=== PATIENT | female | born 1980 | race American Indian/Alaskan Native ===

== ENCOUNTER 2018-08-27 18:18 | Emergency (ER) | payer BC ==
[2018-08-27] MEDS ORDERED: NACL 0.9% 1000 ML 1,000 ML IV ONE (18:44)
[2018-08-27 19:22] LABS: Hemoglobin 7.3 gm/dl (10.1-14.3); Mean Corpuscular HGB Conc 32 % (30-34); Mean Corpuscular Volume 75 fl (79-97); Platelet Count 733 K/mm3 (140-440); Red Blood Count 3.06 M/mm3 (3.65-5.03); Red Cell Distribution Width 17.9 % (13.2-15.2)
[2018-08-27 19:34] LABS: Alanine Aminotransferase 27 units/L (7-56); BUN/Creatinine Ratio 7; Blood Urea Nitrogen 5 mg/dL (7-17); Calcium 8.6 mg/dL (8.4-10.2); Hemolysis Index 0
[2018-08-27 20:23] LABS: Basophils % (Manual) 0 % (0.0-1.8); Eosinophils % (Manual) 0 % (0.0-4.3); Total Cells Counted 100
[2018-08-27 20:25] LABS: Anisocytosis 1+; Hypochromasia 1+; Platelet Estimate Consistent w Auto; Target Cells Few
[2018-08-27 22:04] LABS: HCG Qualitative,Urine Negative (Negative)
[2018-08-27 22:08] LABS: Bacteria,Urine 1+ /HPF (Negative); Bilirubin,Urine NEG (Negative); Blood,Urine MOD (Negative); Color,Urine Yellow (Yellow); Protein,Urine <15 mg/dL mg/dL (Negative)
--- NOTE | 2018-08-28 02:05 | Emergency Department Report ---
ED Abdominal Pain HPI - General Chief Complaint: Abdominal Pain Stated Complaint: ABD PAIN,ANAL PAIN Time Seen by Provider: 08/28/18 02:05 Source: patient Mode of arrival: Ambulatory Limitations: No Limitations - History of Present Illness MD Complaint: abdominal pain -: Gradual Location: LLQ, RLQ, suprapubic Radiation: none Migration to: no migration Severity: moderate Severity scale (0 -10): 6 Quality: cramping, sharp Consistency: constant Improves With: nothing Worsens With: nothing Associated Symptoms: denies other symptoms - Related Data Allergies Allergy/AdvReac Type Severity Reaction Status Date / Time No Known Allergies Allergy Unverified 08/27/18 18:44 ED Review of Systems ROS: Stated complaint: ABD PAIN,ANAL PAIN Other details as noted in HPI Comment: All other systems reviewed and negative Constitutional: denies: chills, fever Eyes: denies: eye pain, eye discharge, vision change ENT: denies: ear pain, throat pain Respiratory: denies: cough, shortness of breath, wheezing Cardiovascular: denies: chest pain, palpitations Endocrine: no symptoms reported Gastrointestinal: abdominal pain. denies: nausea, diarrhea Genitourinary: denies: urgency, dysuria, discharge Musculoskeletal: denies: back pain, joint swelling, arthralgia Skin: denies: rash, lesions Neurological: weakness (generalized weakness and fatigue.). denies: headache, paresthesias Psychiatric: denies: anxiety, depression Hematological/Lymphatic: denies: easy bleeding, easy bruising ED Past Medical Hx - Past Medical History Additional medical history: hemorrhoids - Social History Smoking Status: Never Smoker Substance Use Type: Alcohol ED Physical Exam - General Limitations: No Limitations General appearance: alert, in no apparent distress, obese - Head Head exam: Present: atraumatic, normocephalic - Eye Eye exam: Present: normal appearance, PERRL, EOMI Pupils: Present: normal accommodation - ENT ENT exam: Present: normal exam, normal orophraynx, mucous membranes moist - Neck Neck exam: Present: normal inspection, full ROM - Respiratory Respiratory exam: Present: normal lung sounds bilaterally. Absent: respiratory distress - Cardiovascular Cardiovascular Exam: Present: regular rate, normal rhythm. Absent: systolic murmur, diastolic murmur, rubs, gallop - GI/Abdominal GI/Abdominal exam: Present: soft, normal bowel sounds - Rectal Rectal exam: Present: deferred - External exam: Present: normal external exam. Absent: lacerations, bleeding Speculum exam: Present: vaginal discharge. Absent: vaginal bleeding, foreign body, laceration Bi-manual exam: Present: cervical motion tendernes, adnexal tenderness, uterine tenderness, other (Police Commanding Officer was Ms. Leggett RN.). Absent: adnexal mass, uterine enlargement - Extremities Exam Extremities exam: Present: normal inspection, full ROM, normal capillary refill. Absent: tenderness - Back Exam Back exam: Present: normal inspection, full ROM - Neurological Exam Neurological exam: Present: alert, oriented X3, CN II-XII intact - Psychiatric Psychiatric exam: Present: normal affect, normal mood - Skin Skin exam: Present: warm, dry, intact, normal color. Absent: rash ED Course Vital Signs 08/27/18 08/27/18 08/27/18 18:40 22:44 23:26 Temperature 98 F 99.1 F 98.5 F Pulse Rate 111 H 102 H 98 H Respiratory 18 18 18 Rate Blood Pressure 149/62 150/81 Blood Pressure 144/76 [Right] O2 Sat by Pulse 100 99 98 Oximetry 08/28/18 03:21 Temperature Pulse Rate 94 H Respiratory 19 Rate Blood Pressure Blood Pressure 104/67 [Right] O2 Sat by Pulse 100 Oximetry - Reevaluation(s) Reevaluation #1: 08/28/18 06:00 Patient refused blood transfusion and admission to the hospital. - Consultations Consultation #1: 08/28/18 05:38 I consulted the OBGYN doctor instructional support technician Dr Vinson and she agreed with admitting patient to mother/baby unit for further evaluation and management. She also recommend transfusing patient with PRBC's. ED Medical Decision Making - Lab Data Result diagrams: 08/27/18 18:46 08/27/18 18:46 Lab Results 08/27/18 08/27/18 08/27/18 Range/Units 18:46 18:46 21:53 WBC 18.5 H (4.5-11.0) K/mm3 RBC 3.06 L (3.65-5.03) M/mm3 Hgb 7.3 L (10.1-14.3) gm/dl Hct 23.0 L (30.3-42.9) % MCV 75 L (79-97) fl MCH 24 L (28-32) pg MCHC 32 (30-34) % RDW 17.9 H (13.2-15.2) % Plt Count 733 H (140-440) K/mm3 Add Manual Diff Complete Total Counted 100 Seg Neuts % (Manual) 74.0 H (40.0-70.0) % Band Neutrophils % 0 % Lymphocytes % (Manual) 22.0 (13.4-35.0) % Reactive Lymphs % (Man) 0 % Monocytes % (Manual) 4.0 (0.0-7.3) % Eosinophils % (Manual) 0 (0.0-4.3) % Basophils % (Manual) 0 (0.0-1.8) % Metamyelocytes % 0 % Myelocytes % 0 % Promyelocytes % 0 % Blast Cells % 0 % Nucleated RBC % Not Reportable Seg Neutrophils # Man 13.7 H (1.8-7.7) K/mm3 Band Neutrophils # 0.0 K/mm3 Lymphocytes # (Manual) 4.1 (1.2-5.4) K/mm3 Abs React Lymphs (Man) 0.0 K/mm3 Monocytes # (Manual) 0.7 (0.0-0.8) K/mm3 Eosinophils # (Manual) 0.0 (0.0-0.4) K/mm3 Basophils # (Manual) 0.0 (0.0-0.1) K/mm3 Metamyelocytes # 0.0 K/mm3 Myelocytes # 0.0 K/mm3 Promyelocytes # 0.0 K/mm3 Blast Cells # 0.0 K/mm3 WBC Morphology Not Reportable Hypersegmented Neuts Not Reportable Hyposegmented Neuts Not Reportable Hypogranular Neuts Not Reportable Smudge Cells Not Reportable Toxic Granulation Not Reportable Toxic Vacuolation Not Reportable Dohle Bodies Not Reportable Pelger-Huet Anomaly Not Reportable Tala Rods Not Reportable Platelet Estimate Consistent w auto Clumped Platelets Not Reportable Plt Clumps, EDTA Not Reportable Large Platelets Not Reportable Giant Platelets Not Reportable Platelet Satelliting Not Reportable Plt Morphology Comment Not Reportable RBC Morphology Not Reportable Dimorphic RBCs Not Reportable Polychromasia Few Hypochromasia 1+ Poikilocytosis Not Reportable Anisocytosis 1+ Microcytosis Few Macrocytosis Not Reportable Spherocytes Not Reportable Pappenheimer Bodies Not Reportable Sickle Cells Not Reportable Target Cells Few Tear Drop Cells Not Reportable Ovalocytes Not Reportable Helmet Cells Not Reportable [place] Bodies Not Reportable [place] Rings Not Reportable [place] Cells Not Reportable Bite Cells Not Reportable Crenated Cell Not Reportable Elliptocytes Not Reportable Acanthocytes (Spur) Not Reportable Rouleaux Not Reportable Hemoglobin C Crystals Not Reportable Schistocytes Not Reportable Malaria parasites Not Reportable [place] Bodies Not Reportable Hem Pathologist Commnt No Sodium 137 (137-145) mmol/L Potassium 3.5 L (3.6-5.0) mmol/L Chloride 98.6 (98-107) mmol/L Carbon Dioxide 24 (22-30) mmol/L Anion Gap 18 mmol/L BUN 5 L (7-17) mg/dL Creatinine 0.7 (0.7-1.2) mg/dL Estimated GFR > 60 ml/min BUN/Creatinine Ratio 7 % Glucose 102 H (65-100) mg/dL Calcium 8.6 (8.4-10.2) mg/dL Total Bilirubin 0.20 (0.1-1.2) mg/dL AST 17 (5-40) units/L ALT 27 (7-56) units/L Alkaline Phosphatase 76 (35-129) units/L Total Protein 7.9 (6.3-8.2) g/dL Albumin 3.0 L (3.9-5) g/dL Albumin/Globulin Ratio 0.6 % Lipase 26 (13-60) units/L Urine Color Yellow (Yellow) Urine Turbidity Slightly-cloudy (Clear) Urine pH 6.0 (5.0-7.0) Ur Specific Maxwell 1.008 (1.003-1.030) Urine Protein <15 mg/dl (Negative) mg/dL Urine Glucose (UA) Neg (Negative) mg/dL Urine Ketones Neg (Negative) mg/dL Urine Blood Mod (Negative) Urine Nitrite Neg (Negative) Urine Bilirubin Neg (Negative) Urine Urobilinogen 2.0 (<2.0) mg/dL Ur Leukocyte Esterase Mod (Negative) Urine WBC (Auto) 24.0 H (0.0-6.0) /HPF Urine RBC (Auto) 2.0 (0.0-6.0) /HPF U Epithel Cells (Auto) 3.0 (0-13.0) /HPF Urine Bacteria (Auto) 1+ (Negative) /HPF Urine HCG, Qual (Negative) 08/27/18 Range/Units 21:53 WBC (4.5-11.0) K/mm3 RBC (3.65-5.03) M/mm3 Hgb (10.1-14.3) gm/dl Hct (30.3-42.9) % MCV (79-97) fl MCH (28-32) pg MCHC (30-34) % RDW (13.2-15.2) % Plt Count (140-440) K/mm3 Add Manual Diff Total Counted Seg Neuts % (Manual) (40.0-70.0) % Band Neutrophils % % Lymphocytes % (Manual) (13.4-35.0) % Reactive Lymphs % (Man) % Monocytes % (Manual) (0.0-7.3) % Eosinophils % (Manual) (0.0-4.3) % Basophils % (Manual) (0.0-1.8) % Metamyelocytes % % Myelocytes % % Promyelocytes % % Blast Cells % % Nucleated RBC % Seg Neutrophils # Man (1.8-7.7) K/mm3 Band Neutrophils # K/mm3 Lymphocytes # (Manual) (1.2-5.4) K/mm3 Abs React Lymphs (Man) K/mm3 Monocytes # (Manual) (0.0-0.8) K/mm3 Eosinophils # (Manual) (0.0-0.4) K/mm3 Basophils # (Manual) (0.0-0.1) K/mm3 Metamyelocytes # K/mm3 Myelocytes # K/mm3 Promyelocytes # K/mm3 Blast Cells # K/mm3 WBC Morphology Hypersegmented Neuts Hyposegmented Neuts Hypogranular Neuts Smudge Cells Toxic Granulation Toxic Vacuolation Dohle Bodies Pelger-Huet Anomaly Tala Rods Platelet Estimate Clumped Platelets Plt Clumps, EDTA Large Platelets Giant Platelets Platelet Satelliting Plt Morphology Comment RBC Morphology Dimorphic RBCs Polychromasia Hypochromasia Poikilocytosis Anisocytosis Microcytosis Macrocytosis Spherocytes Pappenheimer Bodies Sickle Cells Target Cells Tear Drop Cells Ovalocytes Helmet Cells [place] Bodies [place] Rings [place] Cells Bite Cells Crenated Cell Elliptocytes Acanthocytes (Spur) Rouleaux Hemoglobin C Crystals Schistocytes Malaria parasites [place] Bodies Hem Pathologist Commnt Sodium (137-145) mmol/L Potassium (3.6-5.0) mmol/L Chloride (98-107) mmol/L Carbon Dioxide (22-30) mmol/L Anion Gap mmol/L BUN (7-17) mg/dL Creatinine (0.7-1.2) mg/dL Estimated GFR ml/min BUN/Creatinine Ratio % Glucose (65-100) mg/dL Calcium (8.4-10.2) mg/dL Total Bilirubin (0.1-1.2) mg/dL AST (5-40) units/L ALT (7-56) units/L Alkaline Phosphatase (35-129) units/L Total Protein (6.3-8.2) g/dL Albumin (3.9-5) g/dL Albumin/Globulin Ratio % Lipase (13-60) units/L Urine Color (Yellow) Urine Turbidity (Clear) Urine pH (5.0-7.0) Ur Specific Maxwell (1.003-1.030) Urine Protein (Negative) mg/dL Urine Glucose (UA) (Negative) mg/dL Urine Ketones (Negative) mg/dL Urine Blood (Negative) Urine Nitrite (Negative) Urine Bilirubin (Negative) Urine Urobilinogen (<2.0) mg/dL Ur Leukocyte Esterase (Negative) Urine WBC (Auto) (0.0-6.0) /HPF Urine RBC (Auto) (0.0-6.0) /HPF U Epithel Cells (Auto) (0-13.0) /HPF Urine Bacteria (Auto) (Negative) /HPF Urine HCG, Qual Negative (Negative) - Radiology Data Radiology results: report reviewed, image reviewed Pelvic ultrasound showed a large complex mass left ovary measuring 6.9 cm, large uterine fibroid measuring 6 cm and a large cyst on the right ovary measuring 4.2 cm. - Medical Decision Making Symptomatic iron deficiency anemia. Ovarian Cyst. Uterine Fibroid. Abdominal pain. Critical Care Time: Yes Critical care time in (mins) excluding proc time.: 45 Critical care attestation.: If time is entered above; I have spent that time in minutes in the direct care of this critically ill patient, excluding procedure time. ED Disposition Clinical Impression: Bacterial vaginosis, Symptomatic anemia, Severe anemia UTI (urinary tract infection) Qualifiers: Urinary tract infection type: acute cystitis Hematuria presence: without hematuria Qualified Code(s): N30.00 - Acute cystitis without hematuria Abdominal pain Qualifiers: Abdominal location: lower abdomen, unspecified Qualified Code(s): R10.30 - Lower abdominal pain, unspecified Uterine fibroid Qualifiers: Uterine leiomyoma location: unspecified location Qualified Code(s): D25.9 - Leiomyoma of uterus, unspecified Ovarian cyst Qualifiers: Laterality: bilateral Qualified Code(s): N83.201 - Unspecified ovarian cyst, right side Iron deficiency anemia Qualifiers: Iron deficiency anemia type: chronic blood loss Qualified Code(s): D50.0 - Iron deficiency anemia secondary to blood loss (chronic) Disposition: OP ADMIT IP TO THIS HOSP Is pt being admited?: Yes Does the pt Need Aspirin: No Condition: Stable Instructions: Bacterial Vaginosis (ED), Abdominal Pain (ED) Referrals: PRIMARY CARE, [Primary Care Provider] - 3-5 Days Forms: AMA Form, STI Treatment and Prevention, Work/School Release Form(ED) Time of Disposition: 05:45
[2018-08-28] MEDS ORDERED: LEVAQUIN 750MG/150ML 750 MG/150 ML BAG IV ONE (03:03)
[2018-08-28] MEDS ORDERED: NACL 0.9% 1000 ML 1,000 ML IV ONE (03:03)
[2018-08-28 03:22] VITALS: BP 104/67
--- NOTE | 2018-08-28 03:40 | XRay Report ---
FINAL REPORT PROCEDURE: XR CHEST 1V AP TECHNIQUE: Chest radiograph anteroposterior view. CPT 72891 HISTORY: cough COMPARISON: No prior studies are available for comparison. FINDINGS: Heart: Normal. Mediastinum/Vessels: Normal. Lungs/Pleural space: Normal. Bony thorax: No acute osseous abnormality. Life support devices: None. IMPRESSION: No acute cardiopulmonary abnormality.
[2018-08-28] MEDS ORDERED: FLAGYL 500 MG/100 ML 500 MG/100 ML BAG IV ONE (03:55)
[2018-08-28] MEDS ORDERED: XYLOCAINE 1% MPF 5 mL INFILTRATI ONE (03:56)
[2018-08-28] MEDS ORDERED: ROCEPHIN IM ONE (03:56)
[2018-08-28] MEDS ORDERED: ZITHROMAX PO ONE (03:57)
[2018-08-28] MEDS ORDERED: ZOFRAN IV ONE (03:57)
--- NOTE | 2018-08-28 04:54 | Ultrasound Report ---
FINAL REPORT PROCEDURE: US PELVIC COMPLETE TECHNIQUE: Real-time transabdominal sonography in multiple planes of the pelvis was performed. The p elvic structures, especially the ovaries were not optimally visualized. Transvaginal sonography was t hen performed to better evaluate the structures and/or abnormalities described below with image docum entation. CPT 99048 and 45477 HISTORY: Pelvic pain COMPARISON: No prior studies are available for comparison. FINDINGS: UTERUS Size: 12.9 x 5.7 x 7.1 cm. Endometrial thickness: 8 mm. Orientation: anteverted. Cervix: Normal. Fibroids/masses: Large solid tumor in the fundus of the uterus measures 4.4 x 4.7 x 6 centimeters. A large fibroid is suspected.. RIGHT Ovary: 4.8 x 3.3 x 3.2 cm. Appearance: Cystic on the right ovary measures 4.2 centimeters. LEFT Ovary: 6.9 x 6.7 x 7.1 cm. Appearance: Complex cystic region left ovary measures 6.9 centimeters. Pelvic fluid: None. Other: None. IMPRESSION: There is enlarged uterus. A large suspected fibroid in the fundus measures up to 6 centimeters. There is a large complex cystic mass left ovary this measures up to 6.9 centimeters. Followup evaluat ion in this region may include cross-sectional imaging such as MRI or repeat ultrasound in approximat patti 4-6 months. A large cyst on the right ovary measures 4.2 centimeters.
--- NOTE | 2018-08-28 04:54 | Ultrasound Report ---
FINAL REPORT PROCEDURE: US PELVIC COMPLETE TECHNIQUE: Real-time transabdominal sonography in multiple planes of the pelvis was performed. The p elvic structures, especially the ovaries were not optimally visualized. Transvaginal sonography was t hen performed to better evaluate the structures and/or abnormalities described below with image docum entation. CPT 49201 and 66277 HISTORY: Pelvic pain COMPARISON: No prior studies are available for comparison. FINDINGS: UTERUS Size: 12.9 x 5.7 x 7.1 cm. Endometrial thickness: 8 mm. Orientation: anteverted. Cervix: Normal. Fibroids/masses: Large solid tumor in the fundus of the uterus measures 4.4 x 4.7 x 6 centimeters. A large fibroid is suspected.. RIGHT Ovary: 4.8 x 3.3 x 3.2 cm. Appearance: Cystic on the right ovary measures 4.2 centimeters. LEFT Ovary: 6.9 x 6.7 x 7.1 cm. Appearance: Complex cystic region left ovary measures 6.9 centimeters. Pelvic fluid: None. Other: None. IMPRESSION: There is enlarged uterus. A large suspected fibroid in the fundus measures up to 6 centimeters. There is a large complex cystic mass left ovary this measures up to 6.9 centimeters. Followup evaluat ion in this region may include cross-sectional imaging such as MRI or repeat ultrasound in approximat patti 4-6 months. A large cyst on the right ovary measures 4.2 centimeters. PROCEDURE: TECHNIQUE: HISTORY: COMPARISON: FINDINGS: IMPRESSION:
--- NOTE | 2018-08-28 05:23 | Cat Scan Report ---
FINAL REPORT PROCEDURE: CT ABDOMEN PELVIS W CON TECHNIQUE: Computerized axial tomography of the abdomen and pelvis was performed after the IV inject ion of iodinated nonionic contrast. HISTORY: abdominal pain COMPARISON: No prior studies are available for comparison. FINDINGS: Visualized lower thorax: No significant abnormality. Liver: Normal size and attenuation. Spleen: Normal size and attenuation. Gallbladder and biliary system: Normal. Pancreas: Normal. Adrenals: Normal. Kidneys: Normal. GI tract: No obstruction is seen. The cecum and appendix are normal.. Lymph nodes and mesentery: Normal. Vasculature: Normal. Bladder: Normal. Reproductive organs: The uterus is enlarged. There is a cyst on the right ovary. There is a large for med partially cystic mass in the lower pelvic region behind the uterus. This measures 6.6 by 7 by 6 c entimeters. This may be extension off of the left adnexal region. This does contain some fat. The dif ferential is extensive and will include solid and cystic ovarian masses as well as dermoid cyst this region.. Peritoneum: No free fluid. Musculoskeletal structures: No significant abnormality. Other: None. IMPRESSION: There is no evidence of intestinal or urinary tract obstruction. No ileus or enteritis. There is a mass in the lower pelvis which most likely extends of the left active axillo/ovary region. This measures up to 7 centimeters. The differential is extensive. Benign and malignant diagnoses are included. With slight fat content a dermoid cyst is possible. Appropriate referral is recommended. Slightly enlarged uterus. Fibroid in the fundus uterus is suspected and measures up to 4 centimeters.
== END 2018-08-28 06:28 | disposition admitted as inpatient to this hospital (09) ==
LOC: ED 18:18
DX: N30.00 Acute cystitis without hematuria (principal); D25.9 Leiomyoma of uterus, unspecified; N83.201 Unspecified ovarian cyst, right side; D50.0 Iron deficiency anemia secondary to blood loss (chronic); N76.0 Acute vaginitis
CPT/HCPCS: 36415; 71045; 74177; 76830; 76856; 80053; 81001; 81025; 83690; 85007; 85025; 86850; 86900; 86901; 87040; 87086; 87210; 87591; 96365; 96367; 96372; 96375; 99285; J0696; J1956; J2405; J7030; Q9967; 99291

== ENCOUNTER 2018-08-30 08:56 | Emergency (ER) | payer BC ==
[2018-08-30] MEDS ORDERED: ZOFRAN IV ONE (09:53)
[2018-08-30] MEDS ORDERED: MORPHINE IV ONE (09:53)
[2018-08-30 09:58] LABS: Hematocrit 25.1 % (30.3-42.9); Hemoglobin 7.9 gm/dl (10.1-14.3); Mean Corpuscular HGB Conc 32 % (30-34); Mean Corpuscular Volume 76 fl (79-97); Platelet Count 829 K/mm3 (140-440); Red Blood Count 3.28 M/mm3 (3.65-5.03); Red Cell Distribution Width 18.4 % (13.2-15.2)
[2018-08-30 10:06] LABS: Alanine Aminotransferase 18 units/L (7-56); Albumin 3.1 g/dL (3.9-5); BUN/Creatinine Ratio 8; Blood Urea Nitrogen 5 mg/dL (7-17); Calcium 8.9 mg/dL (8.4-10.2); Hemolysis Index 0
[2018-08-30] MEDS ORDERED: MORPHINE ONE (10:06)
[2018-08-30 10:13] LABS: Bilirubin,Urine NEG (Negative); Blood,Urine SM (Negative); Color,Urine Yellow (Yellow); HCG Qualitative,Urine Negative (Negative); Mucus,Urine FEW /HPF; Protein,Urine <15 mg/dL mg/dL (Negative)
--- NOTE | 2018-08-30 10:39 | Emergency Department Report ---
ED General Adult HPI - General Chief complaint: Abdominal Pain Stated complaint: EXTREME PAIN Time Seen by Provider: 08/30/18 09:28 Source: patient Mode of arrival: Ambulatory Limitations: No Limitations - History of Present Illness Initial comments: The patient presents to emergency department with a chief complaint of lower pelvic pain and the need for transfusion. Patient states she was here 2 days ago and left AGAINST MEDICAL ADVICE due to some family issues. Patient states at that time an attempt was made to have her admitted for emergent surgery due to a mass that was found in her pelvis. Patient states that she returned today because of the pain and because her follow-up appointment is not until the of this month. She complains of having heavy cycles for quite some time now as well as pelvic pain for over a year. -: Gradual Location: pelvis Severity scale (0 -10): 8 Quality: sharp Consistency: constant Improves with: none Worsens with: none Associated Symptoms: denies other symptoms Treatments Prior to Arrival: none - Related Data Previous Rx's Medication Instructions Recorded Last Taken Type HYDROcodone/APAP 10-325 [[place] 1 each PO Q8HR PRN #15 tablet 08/30/18 Unknown Rx 10/325] Allergies Allergy/AdvReac Type Severity Reaction Status Date / Time No Known Allergies Allergy Unverified 08/27/18 18:44 ED Review of Systems ROS: Stated complaint: EXTREME PAIN Other details as noted in HPI Comment: All other systems reviewed and negative Constitutional: denies: chills, fever Eyes: denies: eye pain, eye discharge, vision change ENT: denies: ear pain, throat pain Respiratory: denies: cough, shortness of breath, wheezing Cardiovascular: denies: chest pain, palpitations Endocrine: no symptoms reported Gastrointestinal: abdominal pain. denies: nausea, diarrhea Genitourinary: denies: urgency, dysuria, discharge Musculoskeletal: denies: back pain, joint swelling, arthralgia Skin: denies: rash, lesions Neurological: denies: headache, weakness, paresthesias Psychiatric: denies: anxiety, depression Hematological/Lymphatic: denies: easy bleeding, easy bruising ED Past Medical Hx - Past Medical History Previous Medical History?: Yes Additional medical history: hemorrhoids - Social History Smoking Status: Never Smoker Substance Use Type: None - Medications Home Medications: Home Medications Medication Instructions Recorded Confirmed Last Taken Type HYDROcodone/APAP 10-325 [[place] 1 each PO Q8HR PRN #15 tablet 08/30/18 Unknown Rx 325] ED Physical Exam - General Limitations: No Limitations General appearance: alert, in no apparent distress - Head Head exam: Present: atraumatic, normocephalic - Eye Eye exam: Present: normal appearance, PERRL, EOMI - ENT ENT exam: Present: mucous membranes moist - Neck Neck exam: Present: normal inspection - Respiratory Respiratory exam: Present: normal lung sounds bilaterally. Absent: respiratory distress, wheezes, rales - Cardiovascular Cardiovascular Exam: Present: regular rate, normal rhythm. Absent: systolic murmur, diastolic murmur, rubs, gallop - GI/Abdominal GI/Abdominal exam: Present: soft, tenderness, normal bowel sounds, other (tenderness to palpation of the suprapubic region). Absent: distended - Extremities Exam Extremities exam: Present: normal inspection - Back Exam Back exam: Present: normal inspection - Neurological Exam Neurological exam: Present: alert, oriented X3 - Psychiatric Psychiatric exam: Present: normal affect, normal mood - Skin Skin exam: Present: warm, dry, intact, normal color. Absent: rash ED Course Vital Signs 08/30/18 08/30/18 09:06 10:58 Temperature 98 F Pulse Rate 91 H 76 Respiratory 16 16 Rate Blood Pressure 159/84 Blood Pressure 130/60 [Right] O2 Sat by Pulse 100 96 Oximetry ED Medical Decision Making - Lab Data Result diagrams: 08/30/18 09:26 08/30/18 09:26 Lab Results 08/30/18 08/30/18 08/30/18 Range/Units 09:26 09:26 09:45 WBC 12.2 H (4.5-11.0) K/mm3 RBC 3.28 L (3.65-5.03) M/mm3 Hgb 7.9 L (10.1-14.3) gm/dl Hct 25.1 L (30.3-42.9) % MCV 76 L (79-97) fl MCH 24 L (28-32) pg MCHC 32 (30-34) % RDW 18.4 H (13.2-15.2) % Plt Count 829 H (140-440) K/mm3 Add Manual Diff Complete Total Counted 100 Seg Neuts % (Manual) 71.0 H (40.0-70.0) % Band Neutrophils % 0 % Lymphocytes % (Manual) 22.0 (13.4-35.0) % Reactive Lymphs % (Man) 0 % Monocytes % (Manual) 4.0 (0.0-7.3) % Eosinophils % (Manual) 1.0 (0.0-4.3) % Basophils % (Manual) 0 (0.0-1.8) % Metamyelocytes % 0 % Myelocytes % 2.0 % Promyelocytes % 0 % Blast Cells % 0 % Nucleated RBC % Not Reportable Seg Neutrophils # Man 8.7 H (1.8-7.7) K/mm3 Band Neutrophils # 0.0 K/mm3 Lymphocytes # (Manual) 2.7 (1.2-5.4) K/mm3 Abs React Lymphs (Man) 0.0 K/mm3 Monocytes # (Manual) 0.5 (0.0-0.8) K/mm3 Eosinophils # (Manual) 0.1 (0.0-0.4) K/mm3 Basophils # (Manual) 0.0 (0.0-0.1) K/mm3 Metamyelocytes # 0.0 K/mm3 Myelocytes # 0.2 K/mm3 Promyelocytes # 0.0 K/mm3 Blast Cells # 0.0 K/mm3 WBC Morphology Not Reportable Hypersegmented Neuts Not Reportable Hyposegmented Neuts Not Reportable Hypogranular Neuts Not Reportable Smudge Cells Not Reportable Toxic Granulation Not Reportable Toxic Vacuolation Not Reportable Dohle Bodies Not Reportable Pelger-Huet Anomaly Not Reportable Tala Rods Not Reportable Platelet Estimate Consistent w auto Clumped Platelets Not Reportable Plt Clumps, EDTA Not Reportable Large Platelets Not Reportable Giant Platelets Not Reportable Platelet Satelliting Not Reportable Plt Morphology Comment Not Reportable RBC Morphology Not Reportable Dimorphic RBCs Not Reportable Polychromasia Not Reportable Hypochromasia 1+ Poikilocytosis 1+ Anisocytosis 1+ Microcytosis Not Reportable Macrocytosis Not Reportable Spherocytes Not Reportable Pappenheimer Bodies Not Reportable Sickle Cells Not Reportable Target Cells Few Tear Drop Cells Not Reportable Ovalocytes Not Reportable Helmet Cells Not Reportable [place] Bodies Not Reportable [place] Rings Not Reportable [place] Cells Not Reportable Bite Cells Not Reportable Crenated Cell Not Reportable Elliptocytes Not Reportable Acanthocytes (Spur) Not Reportable Rouleaux Not Reportable Hemoglobin C Crystals Not Reportable Schistocytes Not Reportable Malaria parasites Not Reportable Tano Bodies Not Reportable Hem Pathologist Commnt No Sodium 139 (137-145) mmol/L Potassium 3.9 (3.6-5.0) mmol/L Chloride 102.1 (98-107) mmol/L Carbon Dioxide 26 (22-30) mmol/L Anion Gap 15 mmol/L BUN 5 L (7-17) mg/dL Creatinine 0.6 L (0.7-1.2) mg/dL Estimated GFR > 60 ml/min BUN/Creatinine Ratio 8 % Glucose 94 (65-100) mg/dL Calcium 8.9 (8.4-10.2) mg/dL Total Bilirubin 0.20 (0.1-1.2) mg/dL AST 13 (5-40) units/L ALT 18 (7-56) units/L Alkaline Phosphatase 67 (35-129) units/L Total Protein 7.9 (6.3-8.2) g/dL Albumin 3.1 L (3.9-5) g/dL Albumin/Globulin Ratio 0.6 % Lipase 27 (13-60) units/L Urine Color Yellow (Yellow) Urine Turbidity Clear (Clear) Urine pH 8.0 H (5.0-7.0) Ur Specific Wallace 1.008 (1.003-1.030) Urine Protein <15 mg/dl (Negative) mg/dL Urine Glucose (UA) Neg (Negative) mg/dL Urine Ketones Neg (Negative) mg/dL Urine Blood Sm (Negative) Urine Nitrite Neg (Negative) Urine Bilirubin Neg (Negative) Urine Urobilinogen 2.0 (<2.0) mg/dL Ur Leukocyte Esterase Sm (Negative) Urine WBC (Auto) 11.0 H (0.0-6.0) /HPF Urine RBC (Auto) 2.0 (0.0-6.0) /HPF U Epithel Cells (Auto) 1.0 (0-13.0) /HPF Urine Mucus Few /HPF Urine HCG, Qual Negative (Negative) - Medical Decision Making Imaging reviewed from prior visit Discussed case with Avelina nurse mail rider who also consulted Dr. Carroll and the patient to follow up with her pre-existing appointment on the of this month and there is no need for emergent intervention. Critical care attestation.: If time is entered above; I have spent that time in minutes in the direct care of this critically ill patient, excluding procedure time. ED Disposition Clinical Impression: Ovarian mass Disposition: - TO HOME OR SELFCARE Is pt being admited?: No Does the pt Need Aspirin: No Condition: Stable Instructions: Abdominal Pain (ED), Ovarian Cyst (ED) Additional Instructions: return if worse Prescriptions: HYDROcodone/APAP 10-325 [[place] 10/325] 1 each PO Q8HR PRN #15 tablet PRN Reason: Pain Referrals: PRIMARY CARE, [Referring] - 3-5 Days DAGOBERTO CARROLL MD [Staff Physician] - 3-5 Days Time of Disposition: 11:31
[2018-08-30 10:59] VITALS: BP 130/60
[2018-08-30 10:59] LABS: Basophils % (Manual) 0 % (0.0-1.8); Myelocytes # (Manual) 0.2 K/mm3; Total Cells Counted 100
[2018-08-30 11:01] LABS: Anisocytosis 1+; Hypochromasia 1+; Platelet Estimate Consistent w Auto; Poikilocytosis 1+; Target Cells Few
== END 2018-08-30 11:41 | disposition home or self-care (01) ==
LOC: ED 08:56
DX: N83.8 Other noninflammatory disorders of ovary, fallopian tube and broad ligament (principal)
CPT/HCPCS: 36415; 80053; 81001; 81025; 83690; 85007; 85025; 96374; 96375; 99283; J2270; J2405

== ENCOUNTER 2018-11-30 05:44 | Inpatient (IN) | payer BC ==
[2018-11-23 10:36] LABS: Basophils # (Auto) 0.1 K/mm3 (0.0-0.1); Basophils % (Auto) 1.1 % (0.0-1.8); Eosinophils # (Auto) 0.1 K/mm3 (0.0-0.4); Eosinophils % (Auto) 2.2 % (0.0-4.3); Hematocrit 26.8 % (30.3-42.9); Hemoglobin 8.3 gm/dl (10.1-14.3); Lymphocytes # (Auto) 2.2 K/mm3 (1.2-5.4); Lymphocytes % (Auto) 42.4 % (13.4-35.0); Mean Corpuscular HGB Conc 31 % (30-34); Mean Corpuscular Volume 73 fl (79-97); Monocytes # (Auto) 0.5 K/mm3 (0.0-0.8); Monocytes % (Auto) 8.9 % (0.0-7.3); Platelet Count 535 K/mm3 (140-440); Red Blood Count 3.69 M/mm3 (3.65-5.03); Red Cell Distribution Width 18.4 % (13.2-15.2)
--- NOTE | 2018-11-23 10:43 | Anesthesia Consultation ---
Anesthesia Consult and Med Hx Date of service: 11/23/18 - Airway Anesthetic Teeth Evaluation: Good ROM Head & Neck: Adequate Mental/Hyoid Distance: Adequate Mallampati Class: Class I Intubation Access Assessment: Probably Good - Pulmonary Exam CTA: Yes - Cardiac Exam Cardiac Exam: RRR - Pre-Operative Health Status ASA Pre-Surgery Classification: ASA3 Proposed Anesthetic Plan: General Nerve Block: TAP - Pulmonary Hx Smoking: Yes (quit 13 yrs ago) Hx Respiratory Symptoms: No - Cardiovascular System Hx Hypertension: No Hx Heart Attack/AMI: No Hx Percutaneous Transluminal Coronary Angioplasty (PTCA): No - Central Nervous System Hx Seizures: No CVA: No - Gastrointestinal Hx Gastroesophageal Reflux Disease: Yes (moderately controlled with OTC antacids. No symptoms with NPO.) - Endocrine Hx Renal Disease: No Hx Liver Disease: No Hx Insulin Dependent Diabetes: No Hx Non-Insulin Dependent Diabetes: No Hx Thyroid Disease: No - Hematic Hx Anemia: Yes - Other Systems Hx Obesity: Yes (BMI 48) - Additional Comments Anesthesia Medical History Comments: No prior GA. No FHx anesthetic complications. Consented for preop TAP block.
[2018-11-23 10:53] LABS: BUN/Creatinine Ratio 13; Blood Urea Nitrogen 9 mg/dL (7-17); Calcium 8.5 mg/dL (8.4-10.2); Hemolysis Index 1
--- NOTE | 2018-11-29 09:24 | History and Physical Report ---
History of Present Illness Date of examination: 11/23/18 History of present illness: Patient has been reassessed/reevaluated. H&P has been reviewed. No interval changes. This is a 37 years old female who presents with menstrual disorder. The symptoms began 6-12 months ago. She complains of irregular menses, heavy ble eding, dysmenorrhea, clotting, fatigue and cramping, but denies mid-cycle spotting, lack of menses, history of ovarian cysts, history of thyroid disease, history of fibroids, history of PCOS, history of bleeding disorder and lightheadedness. Menses started at age 6 and 8. Interval between menses is 26 days and 28 days. Number of pads used per day is 9-10. Menstrual flow lasts > 7 days. Patient reports that for pain she uses Tylenol and ibuprofen. The patient also presents with pelvic pain. The symptoms began 3 months ago. Patient was seen at [facility] ER on 08/28 and 08/30 Patient's work up has included Pelvic CT scan and ultrasound revealing a large fibroid uterus and large ovarian cyst of 6.9cm on left. She complains of dysmenorrhea, nausea, vomiting and back pain, but denies dysuria, dyspareunia, vaginal itching, vaginal discharge, vaginal odor, painful bowel movements, constipation, diarrhea and fever. Pain is located umbilicus, suprapubic, low back, left lateral side and right lateral side. She describes the pain as sharp, dull, cramping and pressure. Duration of pain is >1 hour. Episodes are constant and unpredictable. Patient notes pain is better with narcotics and anti- inflammatories. Patient's symptoms when present disrupts her normal daily activities Menstrual problems are causing the patient to miss work frequently Patient desires definitive treatment Vital Signs: Patient Profile: 37 Years Old Female LMP: 11/10/2018 Height: 68 inches (172.72 cm) Weight: 334 pounds (151.82 kg) BMI: 50.78 Menstrual History: LMP (date): 11/10/2018 Past History : 1 Term Births: 1 Premature Births: 0 Living Children: 1 Para: 1 Mult. Births: 0 Prev : 0 Aborta: 0 Elect. Ab: 0 Spont. Ab: 0 Ectopics: 0 INSPECTOR MISSILE History Operations: Negative Past Surgical History Abnormal PAP: negative Uterine Anomaly: positive fibroids Infection History HIV Risk Eval: no Personal hx. of genital herpes: no Hx of STD: None Current Allergies (reviewed today): No known allergies Past Medical History: Negative Past Medical History Family History Summary: Other family member - Has Family History of CVA or Stroke - Entered On: 09/13/2018 Other family member - Has Family History of Diabetes - Entered On: 09/13/2018 Other family member - Has Family History of Hypertension - Entered On: 09/13/2018 Other family member - Has No Family History of Breast Cancer - Entered On: 09/13/2018 Other family member - Has Family History Colon Cancer - Entered On: 09/13/2018 Other family member - Has No Family History of Ovarvian Cancer - Entered On: 09/13/2018 Social History: Marital Status: Children: 1 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 Risk Factors: Smoked Tobacco Use: Former smoker Smokeless Tobacco Use: Never Passive smoke exposure: no Drug use: no HIV high-risk behavior: no Alcohol use: yes Exercise: no Seatbelt use: 100 % Review of Systems General Complains of fatigue. Denies fever, chills, sweats, anorexia, weakness, malaise, weight loss and sleep disorder. Complains of menorrhagia, abnormal vaginal bleeding, pelvic pain, painful periods and painful sex. Denies vaginal discharge, incontinence, dysuria, hematuria, urinary frequency, amenorrhea, genital sores, decreased libido, urinary urgency, hot flashes, vaginal dryness, vaginal itching and vaginal odor. CV Denies chest pains, palpitations, syncope, dyspnea on exertion, orthopnea, PND and peripheral edema. Resp Denies cough, dyspnea at rest, excessive sputum, hemoptysis, wheezing and pleurisy. GI Denies nausea, vomiting, diarrhea, constipation, change in bowel habits, abdominal pain, melena, hematochezia, jaundice, gas/bloating, indigestion/heartburn, dysphagia and odynophagia. Breast Denies left breast lump, right breast lump, nipple discharge, bloody discharge from nipple, breast pain, abnormal mammogram and breast enlargement. Psych Denies depression, anxiety, irritability and mood swings. Past History Past Medical History: other (See HPI) Past Surgical History: Other (See HPI) Social history: full code (See HPI) Family history: other (See HPI) Medications and Allergies Allergies Allergy/AdvReac Type Severity Reaction Status Date / Time No Known Allergies Allergy Unverified 11/22/18 16:35 Home Medications Medication Instructions Recorded Confirmed Last Taken Type Naproxen [Naprosyn] 375 mg PO Q6H PRN 11/22/18 11/30/18 11/22/18 History Active Meds: Active Medications Celecoxib (Celebrex) 200 mg PO PREOP NR Stop: 11/30/18 23:59 Fentanyl (Sublimaze) 100 mcg IV ONCE PRN PRN Reason: sedation for nerve block Stop: 11/30/18 23:59 Gabapentin (Neurontin) 300 mg PO PREOP NR Stop: 11/30/18 23:59 Lactated Ringer's (Lactated Ringers) 1,000 mls @ 100 mls/hr IV DIRECT ATUL Midazolam HCl (Versed) 2 mg IV PREOP NR Stop: 11/30/18 23:59 Scopolamine (Transderm-Scop) 1 each TD PREOP NR Stop: 12/03/18 05:59 Review of Systems Constitutional: other (See HPI) Exam - Physical Exam Narrative exam: HEENT: normocephalic, no lesions or deformities Skin no significant abnormal lesions or rashes Breasts: skin/areolae normal, no masses, no nipple discharge, no erythema/warmth/tenderness, and axillae normal. Abdomen: Obese, normal bowel sounds, soft, nontender, no HSM Musculoskeletal: grossly normal ROM in joints, no joint tenderness or muscle weakness Neuro: no gross anomalities Extremities: no clubbing, cyanosis, or edema INSPECTOR MISSILE Exams Vulva/Vagina: No lesions, normal BUS, normal rugae Cervix: No lesions; no cervical motion tenderness Uterus: enlarged palpated at umbilicus Adnexae: unable to palpate due to patient's guarding Rectovaginal: exam defered - Constitutional Vitals: Temp Pulse Resp BP Pulse Ox 98.2 F 70 20 153/78 97 11/23/18 10:10 11/23/18 10:10 11/23/18 10:10 11/23/18 10:10 11/23/18 10:10 Results - Labs CBC & Chem 7: 11/23/18 10:20 11/23/18 10:20 Assessment and Plan - Patient Problems (1) Intramural leiomyoma of uterus Current Visit: No Status: Acute Plan to address problem: Diagnosis explained to patient . Questions answered. Discussed with patient various medical, surgical and radiological therapies common for treatment including myomectomy hysterectomy and uterine artery embolization Patient's symptoms when present disrupts her normal daily activities Patient desires defin itive treatment Patient desires hysterectomy Discussed risks and benefits of laparotomy, laparoscopy, vaginal and robotic assisted approaches for hysterectomies Patient desires a total abdominal hysterectomy. Consent reviewed and signed . The risks and alternatives for this surgery were reviewed with the patient. Discuss the risks of the surgery including infection, bleeding possibly heavy enough to require a blood transfusion, possible damage to bowel, bladder or ureter. Patient understands if her ovaries are removed she will become menopausal. Her questions were answered. Patient understands and desires to proceed . (2) Ovarian cyst Current Visit: No Status: Acute Qualifiers: Laterality: left Qualified Code(s): N83.202 - Unspecified ovarian cyst, left side Plan to address problem: Patient desires definitive treatment Patient understands bilateral or unilateral oophorectomy maybe necessary (3) Pelvic and perineal pain Current Visit: No Status: Acute Plan to address problem: Probably secondary to # 1 and #2 (4) Dysmenorrhea Current Visit: No Status: Acute Plan to address problem: Probably secondary to # 1 (5) Menorrhagia Current Visit: No Status: Acute Qualifiers: Menorrahagia type: with regular cycle Qualified Code(s): N92.0 - Excessive and frequent menstruation with regular cycle Plan to address problem: Probably secondary to # 1 (6) Anemia due to blood loss, chronic Current Visit: No Status: Acute Plan to address problem: Probably secondary to # 5 (7) BMI 45.0-49.9, adult Current Visit: No Status: Acute
[2018-11-30] MEDS ORDERED: LACTATED RINGERS 1,000 ML IV SCH (06:00)
[2018-11-30] MEDS ORDERED: PEPCID IV SCH (06:00)
[2018-11-30] MEDS ORDERED: NEURONTIN PO NR (06:00)
[2018-11-30] MEDS ORDERED: VERSED IV NR (06:00)
[2018-11-30] MEDS ORDERED: TRANSDERM-SCOP TD NR (06:00)
[2018-11-30] MEDS ORDERED: SUBLIMAZE IV PRN (06:00)
[2018-11-30] MEDS ORDERED: NACL BACTERIOSTATIC INFILTRATI ONE (06:16)
[2018-11-30] MEDS ORDERED: DECADRON ONE ×2 (07:12→08:09)
[2018-11-30] MEDS ORDERED: MARCAINE 0.25% INFILTRATI ONE (07:12)
[2018-11-30] MEDS ORDERED: METHYLENE BLUE ONE (07:30)
[2018-11-30] MEDS ORDERED: ACD-A 500 ML IV ONE (07:30)
[2018-11-30] MEDS ORDERED: DIPRIVAN 10 MG/ML IV ONE (07:32)
[2018-11-30] MEDS ORDERED: DILAUDID ONE (07:32)
[2018-11-30] MEDS ORDERED: XYLOCAINE MPF 2% ONE (07:33)
[2018-11-30] MEDS ORDERED: ZEMURON IV ONE ×2 (07:33→09:54)
--- NOTE | 2018-11-30 07:55 | Anesthesia Day of Surgery ---
Anesthesia Day of Surgery - Day of Surgery Patient Examined: Yes Patient H&P Reviewed: Yes Patient is NPO: Yes
[2018-11-30] MEDS ORDERED: ANCEF/STERILE WATER 2 GM/20 ML IV NR (08:00)
[2018-11-30] MEDS ORDERED: NACL 0.9% IR ONE (08:15)
[2018-11-30] MEDS ORDERED: DILAUDID IV PRN (08:30)
[2018-11-30] MEDS ORDERED: NEO SYNEPHRINE/NS Syringe(OR USE) IV ONE (09:53)
[2018-11-30] MEDS ORDERED: ROBINUL ONE (09:54)
[2018-11-30] MEDS ORDERED: ZOFRAN ONE (09:56)
[2018-11-30] MEDS ORDERED: NACL 0.9% 1000 ML 1,000 ML ONE (10:15)
[2018-11-30] MEDS ORDERED: NACL 0.9% 100 ML ONE (10:16)
--- NOTE | 2018-11-30 10:30 | Operative Report ---
Operative Report Operative Report: Date of procedure: 11/30/2018 Pre-operative diagnosis: Symptomatic leiomyomata with menorrhalgia, dysmenorrhe a,pelvic pain and ovarian cysts Post-operative diagnosis: Same plus bilateral hydrosalpinx Procedure name(s): Total Adominal hysterectomy with bilateral salpingectomy and right oophorectomy Surgeon: Pedro Winters MD Technician'S Helper: Renee Kessler, certified scrum master Anesthesia: General EBL: 400 mL patient received 125 mL back from Cell [facility]ver Complications: None Findings: Patient with uterus approximately 16 weeks in size with multiple leiomyomata and the largest approximately 6 cm fundal myoma patient had bilateral hydrosalpinx with adhesions of the right adnexa to the posterior uterus and intestines also adhesions between the left adnexa and posterior uterus with a left hydrosalpinx. Normal-appearing left ovary. Right ovary cystic approximately 5 cm in diameter Specimen(s): Uterus with cervix and bilateral fallopian tubes and right Procedure: Patient was brought into the operating room where general anesthesia was induced difficulty. She was placed in supine position. Prepped and draped in the usual sterile manner. A Pfannenstiel incision was made with a scalpel. This incision was taken out and the fascia. The fascia was nicked in the midline and this incision was extended laterally with Zelaya scissors. The fascia was then from the rectus muscles both caudally and cephalically. The peritoneum was entered by grasping with hemostat and lifted high and cut with Metzenbaum scissors. No evidence of internal organ damage was noted. This incision was extended vertically. Patient was placed in Trendelenburg position. No evidence of damage to the bladder. An O'Libby O'Crook self-retaining retractor was then placed incision. The bowel was packed out of the operative field. With the findings as noted above. The uterine fundus was then grasped with a tenaculum. Starting on the patient's right side the round ligament was double clamped cut and ligated. Anteriorly the bladder flap was formed. An avascular window under the ovarian infundibulopelvic pelvic ligament was created by the coring machine operator's fingers the ovarian vessels was double clamped and cut using Panchito clamps and 0 Vicryl which was used throughout the case. The u terine vessels were then skeletonized clamped. Attention was then switched to the patient's left side where the round ligament was double clamped cut and ligated. Bladder flap was connected anteriorly and a an avascular window was formed on the ovarian uterine complex. The vessels were then clamped cut and ligated. With the bladder flap pushed away further and the left uterine vessels clamped and cut. Again the bladder was pushed away and the clamp uterine vessels on the right side were cut. Progressively the uterine vasculature were clamped with a straight Panchito clamp and cut until the sacrouterine ligaments were reached on each side. Again pushed away the bladder curved Panchito clamps were placed across the top of the vaginal cuff. The specimen cut away from the vaginal cuff. The specimen was inspected and found to have complete removal of the cervix. The vaginal cuff was close starting with Ashley stitches at each corner. With interrupted [id number] sutures completing the closure midline. At this time we removed the left fallopian tubes by placing 2 Karo clamps mesial salpinx and cut away the specimen and ligating with 0 Vicryl with good hemostasis. The pelvis was then copiously irrigated all pedicles were found to be hemostatic. The ureters were identified bilaterally and found to be functioning normally. Ryan was placed along the vaginal cuff for posto perative hemostasis all instruments were then removed. The rectus muscles were approximated with 0 Vicryl. The rectus muscles were inspected and found to be hemostatic and irrigation Bovie. The fascia was then closed in a running manner with 0 Vicryl. This closure was hemostatic after irrigation and Bovie. The skin was then reapproximated subcuticularly with 4 Vicryl. The patient tolerated the procedure well. She was awakened in the operating room. Accompanied to recovery room in good condition. Instrument count correct 3.
[2018-11-30] MEDS ORDERED: SODIUM CHLORIDE FLUSH SYRINGE 10 ML IV PRN (11:00)
[2018-11-30] MEDS ORDERED: ZOFRAN IV PRN (11:00)
[2018-11-30] MEDS: TORADOL IV SCH ×3 (11:08→23:41)
--- NOTE | 2018-11-30 12:29 | Post Anesthesia Evaluation ---
- Post Anesthesia Evaluation Patient Participated: Yes Airway Patent: Yes Stable Respiratory Function: Yes Nausea/Vomiting: No Temp > 96.8F: Yes Pain Manageable: Yes Adequeate Hydration: Yes Anesthesia Complications: No
[2018-11-30] MEDS: ANCEF/NS 1 GM/50 ML 1 GM/50 ML BAG IV SCH ×2 (15:20→23:41)
[2018-11-30] MEDS: NORCO 5/325 PO PRN (15:20)
--- NOTE | 2018-11-30 18:17 | Event Note ---
Date: 11/30/18 Day of surgery. Discuss operative findings with patient and questions answered. Patient without fever. Will have up in a chair this evening good urine output. We will continue routine postoperative care.
[2018-11-30] MEDS: D5LR 1,000 ML IV SCH (21:21)
[2018-11-30] MEDS: COLACE PO SCH (21:25)
[2018-12-01] MEDS: COLACE PO SCH ×3 (00:07→21:31)
[2018-12-01] MEDS: D5LR 1,000 ML IV SCH (05:17)
[2018-12-01] MEDS: TORADOL IV SCH (05:18)
[2018-12-01 06:31] LABS: Hematocrit 22.2 % (30.3-42.9)
[2018-12-01 10:22] LABS: Hematocrit 22.9 % (30.3-42.9); Hemoglobin 7.1 gm/dl (10.1-14.3)
[2018-12-01] MEDS: NORCO 5/325 PO PRN ×2 (13:57→20:11)
--- NOTE | 2018-12-01 14:25 | Progress Note ---
Assessment and Plan - Patient Problems (1) S/P KIMBERLEY (total abdominal hysterectomy) Current Visit: Yes Status: Acute Plan to address problem: -routine post op care -ambulate TID -IS at bedside -d/c home in am if AFVSS (2) S/P right oophorectomy Current Visit: Yes Status: Acute Plan to address problem: -routine post op care -ambulate TID -IS at bedside -d/c home in am if AFVSS (3) Status post bilateral salpingectomy Current Visit: Yes Status: Acute Plan to address problem: -routine post op care -ambulate TID -IS at bedside -d/c home in am if AFVSS (4) Anemia due to blood loss, chronic Current Visit: No Status: Acute Plan to address problem: -will con't po iron as pt has been taking out pt -h/h stable -no sx of anemia at this time -spoke with surgeon and he agrees with pt not having xfusion or repeating h/h in the am as she is doing well and vitals are stable. Subjective - Subjective Date of service: 12/01/18 Principal diagnosis: POD #1 s/p KIMBERLEY Interval history: Pt is doing well. + regular diet tolerated. +ambulation. No dizziness, no sob no palpitations. She states she feels good. Patient reports: appetite normal, voiding normally, pain well controlled, flatus, ambulating normally, no dizzy ambulation, no nauseated Objective - Vital Signs Latest vital signs: Vital Signs Temp Pulse Resp BP BP Pulse Ox 12/01/18 12:18 98.7 F 94 H 20 143/62 97 12/01/18 07:43 99.4 F 75 20 115/52 96 12/01/18 04:50 99.2 F 91 H 20 137/62 96 12/01/18 00:00 98.4 F 20 11/30/18 23:27 96 H 126/63 96 11/30/18 20:04 107 H 143/67 99 11/30/18 20:00 98.2 F 20 11/30/18 17:42 18 11/30/18 16:20 19 11/30/18 16:11 98.8 F 80 20 149/75 100 11/30/18 15:20 19 Intake and Output 11/30/18 12/01/18 12/01/18 22:59 06:59 14:59 Intake Total 50 1461.919 6282 Output Total 500 1700 Balance -450 -193.446 3950 Intake: IV 50 991.667 ANCEF/NS 1 GM/50 ML 1 gm 50 In 50 ml @ 100 mls/hr IV Q8H ATUL Rx#:[id number] D5lr 1,000 ml @ 125 mls/ 991.667 hr IV DIRECT ATUL Rx#: [id number] Oral 240 600 Intake, Free Water 720 Output: Urine 500 1700 Indwelling Catheter 500 1700 Other: Total, Intake Amount 120 240 Total, Output Amount 500 1000 Voiding Method Indwelling Catheter # Voids Void 1 - Exam Breasts: Present: normal Cardiovascular: Present: Normal S1, Normal S2 Lungs: Present: Clear to auscultation, Normal air movement Abdomen: Present: normal appearance, soft. Absent: distention, tenderness, gua rding Uterus: Present: other (surgically abscent) Extremities: Present: normal. Absent: tenderness, edema Incision: Present: normal, dry, intact - Labs Labs: Abnormal lab results 12/01/18 12/01/18 Range/Units 05:55 09:13 Hgb 7.0 L 7.1 L (10.1-14.3) gm/dl Hct 22.2 L 22.9 L (30.3-42.9) %
[2018-12-02] MEDS: NORCO 5/325 PO PRN ×2 (03:08→10:30)
[2018-12-02] MEDS: COLACE PO SCH (10:30)
--- NOTE | 2018-12-02 12:04 | Discharge Summary ---
Providers - Providers Date of Admission: 11/30/18 05:44 Date of discharge: 12/02/18 Attending physician: DAGOBERTO CARROLL Primary care physician: GRANT ADMINISTRATOR Hospitalization Reason for admission: other (KIMBERLEY/ BS/ RO) Procedure: other (KIMBERLEY/ BS/ RO) Procedure details: see op note Incision: normal, dry, intact Hospital course: Pt admitted for above stated procedure that was not complicated. Pt has had both preop and post op anemia that has been asymptomatic. She will be d/c home today on po iron and has post op f/u in the office with Dr. Carroll one week after her surgery. Condition at discharge: Good Disposition: DC-01 TO HOME OR SELFCARE - Discharge Diagnoses (1) S/P KIMBERLEY (total abdominal hysterectomy) Status: Acute (2) S/P right oophorectomy Status: Acute (3) Status post bilateral salpingectomy Status: Acute (4) Anemia due to blood loss, chronic Status: Acute Plan - Discharge Medications Prescriptions: Ferrous Sulfate [Feosol 325 MG tab] 325 mg PO BID #60 tablet Ibuprofen [Motrin 800 MG tab] 800 mg PO Q6H PRN #30 tablet PRN Reason: Pain oxyCODONE /ACETAMINOPHEN [Percocet 5/325 mg] 1 - 2 tab PO Q4H PRN #25 tablet PRN Reason: Pain, Moderate - Provider Discharge Summary Additional instructions: [] Smoking cessation referral if applicable(refer to patient education folder for contact #) [] Refer to [facility]'s [facility] Booklet Call your doctor immediately for: * Fever > 100.5 * Heavy vaginal bleeding ( >1 pad per hour) * Severe persistent headache * Shortness of breath * Reddened, hot, painful area to leg or breast * Drainage or odor from incision. * Keep incision clean and dry at all times and follow doctor's instructions regarding bathing/showering - Follow up plan Follow up: PRIMARY CARE, [Primary Care Provider] - 7 Days Forms: [facility] Discharge Summary, Discharge Signature Page
[2018-12-02 12:07] VITALS: BP 103/46
== END 2018-12-02 13:05 | disposition home or self-care (01) | DRG 742 ==
LOC: 3A 05:44 → OB 11:04
PROVIDERS: ADMIT Obstetrics & Gynecology; ATTEND Obstetrics & Gynecology
PROC: 0UT90ZZ Resection of Uterus, Open Approach (ICD-10-PCS; principal; 2018-11-30)
PROC: 0UT70ZZ Resection of Bilateral Fallopian Tubes, Open Approach (ICD-10-PCS; 2018-11-30)
PROC: 0UT00ZZ Resection of Right Ovary, Open Approach (ICD-10-PCS; 2018-11-30)
DX: D25.1 Intramural leiomyoma of uterus (principal); Z68.42 Body mass index [BMI] 45.0-49.9, adult; K21.9 Gastro-esophageal reflux disease without esophagitis; N83.202 Unspecified ovarian cyst, left side; N94.6 Dysmenorrhea, unspecified; E66.9 Obesity, unspecified; N92.0 Excessive and frequent menstruation with regular cycle; D50.0 Iron deficiency anemia secondary to blood loss (chronic); N70.11 Chronic salpingitis; Z87.891 Personal history of nicotine dependence; Z82.3 Family history of stroke; Z83.3 Family history of diabetes mellitus; Z80.0 Family history of malignant neoplasm of digestive organs; Z82.49 Family history of ischemic heart disease and other diseases of the circulatory system
CPT/HCPCS: 36415; 64450; 80048; 81025; 85014; 85018; 85025; 86850; 86900; 86901; 88302; 88305; 88307; G0378; J0690; J1100; J1170; J1885; J2250; J2370; J2405; J2704; J3010; J7030; J7120; J7121; Q9968